=== PATIENT | female | born 1945 | race Caucasian/White ===

== ENCOUNTER 2018-12-25 20:58 | Outpatient (CLI) | payer MEDICARE | END 2018-12-25 20:59 | disposition short-term general hospital (02) | LOC: EMS 20:58 | PROVIDERS: ATTEND Surgery | DX: R10.30 Lower abdominal pain, unspecified (principal); R19.03 Right lower quadrant abdominal swelling, mass and lump | CPT/HCPCS: A0425; A0427 ==